=== PATIENT | male | born 1990 | race Caucasian/White ===

== ENCOUNTER 2017-04-15 12:57 | Inpatient (IN) | payer OTHER ==
[2017-04-15] MEDS ORDERED: ONDANSETRON 4 MG/2 ML VIAL ONE (13:34)
[2017-04-15] MEDS ORDERED: NS 1,000 ML IV ONE ×3 (13:37→14:53)
[2017-04-15] MEDS ORDERED: ONDANSETRON 4 MG/2 ML VIAL IVP ONE (13:37)
--- NOTE | 2017-04-15 13:50 | EDPHY ---
H & P Smoking Status: Never smoked Time Seen by Provider: 04/15/17 13:39 HPI/ROS: CHIEF COMPLAINT: Nausea and vomiting HISTORY OF PRESENT ILLNESS: Per the the patient has a history of alcohol use, symptoms started about 3 weeks ago with a headache. Since then he has had difficulty keeping food water down, he says he has nausea all the time, associated with a little bit of epigastric discomfort. No vomiting or diarrhea, symptoms are worse with oral intake. His headache finally went away after about a week. Comes in with severe symptoms which prevent him from keeping food water down. He feels like his mouth is dry. REVIEW OF SYSTEMS: Eye: no change in vision ENT: no sore throat Cardiac: no chest pain or syncope Pulmonary: no cough or SOB Abdomen: HPI Musculoskeletal: no back pain Skin: no rash Neuro: HPI, no weakness or numbness in extremities and no vertigo or trouble with balance or walking. Constitutional: no fever : no urinary symptoms A comprehensive 10 point review of systems is otherwise negative aside from elements mentioned in the history of present illness. PAST MEDICAL HISTORY: Cholecystectomy in 2016 Social history: Alcohol, General Appearance: Alert and conversant, cooperative. Eyes: No scleral icterus. ENT, Mouth: Dry mucous membranes. Respiratory: Normal respiratory effort, breath sounds equal, lungs are clear to auscultation. Cardiovascular: Regular rate and rhythm. Gastrointestinal: Epigastric tenderness without rebound or guarding and negative Mcnair sign. Neurological: Alert, face symmetric, normal motor and sensory in extremities. Not tremulous. Skin: Warm and dry, no rashes. Musculoskeletal: No peripheral edema. Psychiatric: Not agitated. Emergency Department course/MDM: Head CT with headache and nausea. Zofran 4 mg IV and normal saline 1 L IV for clinical diagnosis of dehydration. Electrolytes and LFTs and lipase, ethanol level. 1429: 1mg IV dilaudid for abdominal pain. 1452: Results discussed with the patient, glucose of 480 and CO2 of 9. Possible DKA versus severe dehydration. DKA protocol initiated, venous pH ordered, admission to hospitalist service. Patient's pH is 7.31 but he is severely dehydrated and hyperglycemic and I think is reasonable to start the protocol in the ER. IV and oral potassium supplementation, 2nd and 3rd L IV normal saline, insulin bolus of 10 U and drip at the 0.1 units/kilos per hour. Hyperglycemia and pancreatitis with severe dehydration. (Clovis Church) Constitutional: Initial Vital Signs Temperature (C) 36.4 C 04/15/17 13:00 Heart Rate 129 H 04/15/17 13:00 Respiratory Rate 16 04/15/17 13:00 Blood Pressure 136/99 H 04/15/17 13:00 O2 Sat (%) 97 04/15/17 13:00 O2 Delivery Mode Room Air Allergies/Adverse Reactions: No Known Allergies Allergy (Verified 04/15/17 13:07) Home Medications: Medication Instructions Recorded NK [No Known Home Meds] 04/15/17 Medical Decision Making - Diagnostics Imaging: I viewed and interpreted images myself Consult/Admit Bed Type: [place] [id number] - Diagnostics Imaging Results: Imaging Impressions Head CT 04/15/17 13:49 Impression: 1. Normal CT brain without contrast. 2. No sinusitis. 3. Consider MRI of the brain, if there is continued clinical concern. Findings discussed with Emergency Department physician, Clovis Church at 1412 hour , 04/15/2017. Final report concurs with initial preliminary interpretation. Critical Care Time: Critical care time spent by me, Dr. Church, exclusively with the care of this patient was 30 minutes, exclusive of PA or STITCH RUBBER time and exclusive of separate procedures. The organ system at risk was metabolic and I ordered IV insulin, IV fluids, potassium replacement both IV and oral, multiple diagnostic studies, pain medication and nausea medication, discussion with hospitalist; to stabilize the patient and prevent worsening of the patient's condition. (Clovis Church) Other Provider: 1710: Patient's BGL has decreased to 250. He is still having pain from his alcoholic hepatitis and pancreatitis. 30mg IV Toradol administered. (Tone Walters) - Data Points Laboratory Results: Laboratory Results 04/15/17 13:30 04/15/17 13:30 04/15/17 04/15/17 04/15/17 13:32 13:30 13:30 WBC RBC Hgb Hct MCV MCH MCHC RDW Plt Count MPV Neut % (Auto) Lymph % (Auto) [place] % (Auto) Eos % (Auto) Baso % (Auto) Nucleat RBC Rel Count Absolute Neuts (auto) Absolute Lymphs (auto) Absolute Monos (auto) Absolute Eos (auto) Absolute Basos (auto) Absolute Nucleated RBC Immature Gran % Immature Gran # Sodium 136 mEq/L mEq/L (134-144) Potassium 3.1 mEq/L L mEq/L (3.5-5.2) Chloride 92 mEq/L L mEq/L (97-110) Carbon Dioxide 9 mEq/l L* mEq/l (22-31) Anion Gap 35 mEq/L H mEq/L (8-16) BUN 3 mg/dL L mg/dL (7-23) Creatinine 0.9 mg/dL mg/dL (0.7-1.3) Estimated GFR > 60 Glucose 481 mg/dL H mg/dL (70-100) Hemoglobin A1c Pending Estim Average Glucose Pending Calcium 10.9 mg/dL H mg/dL (8.5-10.4) Phosphorus 3.8 mg/dL mg/dL (2.5-4.5) Magnesium Total Bilirubin 1.3 mg/dL mg/dL (0.1-1.4) Conjugated Bilirubin 1.0 mg/dL H mg/dL (0.0-0.5) Unconjugated Bilirubin 0.3 mg/dL mg/dL (0.0-1.1) AST 177 IU/L H IU/L (17-59) ALT 220 IU/L H IU/L (21-72) Alkaline Phosphatase 195 IU/L H IU/L (38-126) Total Protein 9.0 g/dL H g/dL (6.3-8.2) Albumin 5.4 g/dL H g/dL (3.5-5.0) Lipase 3624 IU/L H IU/L (23-300) Beta-Hydroxybutyrate Ethyl Alcohol < 10 mg/dL mg/dL (0-10) 04/15/17 04/15/17 13:30 13:27 WBC 7.61 10^3/uL 10^3/uL (3.80-9.50) RBC 5.36 10^6/uL 10^6/uL (4.40-6.38) Hgb 16.5 g/dL g/dL (13.7-17.5) Hct 45.1 % % (40.0-51.0) MCV 84.1 fL fL (81.5-99.8) MCH 30.8 pg pg (27.9-34.1) MCHC 36.6 g/dL g/dL (32.4-36.7) RDW 12.3 % % (11.5-15.2) Plt Count 199 10^3/uL 10^3/uL (150-400) MPV 10.4 fL fL (8.7-11.7) Neut % (Auto) 74.8 % H % (39.3-74.2) Lymph % (Auto) 14.6 % L % (15.0-45.0) [place] % (Auto) 8.1 % % (4.5-13.0) Eos % (Auto) 0.3 % L % (0.6-7.6) Baso % (Auto) 1.8 % H % (0.3-1.7) Nucleat RBC Rel Count 0.0 % % (0.0-0.2) Absolute Neuts (auto) 5.69 10^3/uL 10^3/uL (1.70-6.50) Absolute Lymphs (auto) 1.11 10^3/uL 10^3/uL (1.00-3.00) Absolute Monos (auto) 0.62 10^3/uL 10^3/uL (0.30-0.80) Absolute Eos (auto) 0.02 10^3/uL L 10^3/uL (0.03-0.40) Absolute Basos (auto) 0.14 10^3/uL H 10^3/uL (0.02-0.10) Absolute Nucleated RBC 0.00 10^3/uL 10^3/uL (0-0.01) Immature Gran % 0.4 % % (0.0-1.1) Immature Gran # 0.03 10^3/uL 10^3/uL (0.00-0.10) Sodium Potassium Chloride Carbon Dioxide Anion Gap BUN Creatinine Estimated GFR Glucose Hemoglobin A1c Estim Average Glucose Calcium Phosphorus Magnesium 1.9 mg/dL mg/dL (1.6-2.3) Total Bilirubin Conjugated Bilirubin Unconjugated Bilirubin AST ALT Alkaline Phosphatase Total Protein Albumin Lipase Beta-Hydroxybutyrate 7.65 mmol/L H mmol/L (0.02-0.27) Ethyl Alcohol Medications Given: Insulin Human Regular 100 unit / Miscellaneous Medication 1 ea/ Sodium Chloride 101 mls @ 10 mls/hr IV EDNOW ONE PRN Reason: Protocol Stop: 04/16/17 00:58 Last Admin: 04/15/17 15:58 Dose: 101 mls Discontinued Medications Hydromorphone HCl (Dilaudid) 1 mg IVP EDNOW ONE Stop: 04/15/17 14:30 Last Admin: 04/15/17 14:31 Dose: 1 mg Hydromorphone HCl (Dilaudid) 1 mg IVP EDNOW ONE Stop: 04/15/17 15:22 Last Admin: 04/15/17 15:22 Dose: 1 mg Sodium Chloride (Ns) 1,000 mls @ 0 mls/hr IV ONCE ONE PRN Reason: Wide Open Stop: 04/15/17 13:38 Last Admin: 04/15/17 13:38 Dose: 1,000 mls Sodium Chloride (Ns) 1,000 mls @ 0 mls/hr IV ONCE ONE; Wide Open PRN Reason: Protocol Stop: 04/15/17 14:54 Last Admin: 04/15/17 15:15 Dose: 1,000 mls Sodium Chloride (Ns) 1,000 mls @ 0 mls/hr IV ONCE ONE; Wide Open PRN Reason: Protocol Stop: 04/15/17 14:54 Last Admin: 04/15/17 15:55 Dose: 1,000 mls Potassium Chloride 10 meq/ (Sodium Chloride) 100 mls @ 100 mls/hr IV EDNOW ONE Stop: 04/15/17 16:29 Last Admin: 04/15/17 15:55 Dose: 100 mls Insulin Human Regular (Humulin R) 10 unit IVP EDNOW ONE Stop: 04/15/17 14:54 Last Admin: 04/15/17 15:12 Dose: 10 units Ondansetron HCl (Zofran) 4 mg IVP EDNOW ONE Stop: 04/15/17 13:38 Last Admin: 04/15/17 13:38 Dose: 4 mg Potassium Chloride (Klor-Con) 40 meq PO EDNOW ONE Stop: 04/15/17 14:54 Last Admin: 04/15/17 15:12 Dose: 40 meq Departure - Departure Disposition: Home, Routine, Self-Care Clinical Impression: Hyperglycemia, Dehydration Pancreatitis Qualifiers: Chronicity: acute Pancreatitis type: unspecified pancreatitis type Acute pancreatitis complication: unspecified Qualified Code(s): K85.90 - Acute pancreatitis without necrosis or infection, unspecified Condition: Serious
[2017-04-15 13:54] LABS: PLATELET COUNT 199 10^3/uL (150-400)
[2017-04-15] MEDS ORDERED: HYDROmorphONE/DILAUDID 1 MG/ML INJ IVP ONE ×2 (14:29→15:21)
[2017-04-15] MEDS ORDERED: INSULIN REGULAR HUMAN 100 UNIT/ML IVP ONE (14:53)
[2017-04-15] MEDS ORDERED: INSULIN REGULAR HUMAN 100 UNIT, COSIGN. REQUIRED 1 EA in NS 100 ML IV ONE (14:53)
[2017-04-15] MEDS ORDERED: POTASSIUM CL 20 MEQ TAB PO ONE (14:53)
[2017-04-15] MEDS ORDERED: POTASSIUM Cl (KCl) 100 ML IV ONE (14:53)
[2017-04-15] MEDS ORDERED: ACETAMINOPHEN 325 MG TAB PO PRN (14:58)
[2017-04-15] MEDS ORDERED: ONDANSETRON DISINTEGRATING 4 MG TAB PO PRN (14:58)
[2017-04-15] MEDS ORDERED: ONDANSETRON 4 MG/2 ML VIAL IVP PRN (14:58)
[2017-04-15] MEDS ORDERED: HYDROmorphONE/DILAUDID 1 MG/ML INJ ONE (15:21)
[2017-04-15] MEDS ORDERED: POTASSIUM Cl (KCl) 10 MEQ in NS 100 ML IV ONE (15:30)
[2017-04-15] MEDS ORDERED: HYDROmorphONE/DILAUDID 1 MG/ML INJ IVP PRN (15:53)
--- NOTE | 2017-04-15 16:38 | GHP ---
[f rep st] HISTORY AND PHYSICAL DATE OF ADMISSION: 04/15/2017 CHIEF COMPLAINT: 1. DKA. 2. Headache, nausea. HISTORY OF PRESENT ILLNESS: A 26-year-old male with history of alcohol dependence, drinking greater than a pint of whiskey a day, presenting with headache and nausea. Symptoms began 2 to 3 weeks ago and has had difficulty keeping food down since then. He has been dry heaving. Today, he had vomiting with brown emesis. Denies any bright red blood. He developed crampy left- sided abdominal pain that radiated to his back. It is less intense than it has been over the last couple weeks. He denies any fevers, chills, or sweats. No cough or diarrhea. Reports recent polyuria and polydipsia. He states he does awake at night apneic per his 's report. Last drink was last evening. Mother is very concerned that he has been drinking excessively since the of his father a year ago, who also drank heavily. REVIEW OF SYSTEMS: I completed a 10-point review of systems, negative except as noted in HPI. PAST MEDICAL HISTORY: Alcohol dependence. PAST SURGICAL HISTORY: Cholecystectomy 2015. SOCIAL HISTORY: Lives in [place] with his . 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 Smokes marijuana. Drinks a pint or greater of whiskey a day. Has had a history of alcohol withdrawal. Last drink was last night. FAMILY HISTORY: Diabetes father and maternal grandmother. Father with alcoholism. ALLERGIES: No known drug allergies. HOME MEDICATIONS: None. PHYSICAL EXAMINATION: VITAL SIGNS: Temperature 36.4, blood pressure 136/99, heart rate in 120s, respirations 16, 97% on room air. GENERAL: Ill appearing, uncomfortable. HEENT: PERRLA. Very dry mucous membranes. Oropharynx clear. No erythema or exudate. CV: Tachy, regular. No murmurs, gallops, or rubs. LUNGS: Clear anteriorly. ABDOMEN: Obese, but soft. Diffuse tenderness, greater in left upper quadrant epigastric region. No rebound or guarding. Positive bowel sounds. : No suprapubic or CVA tenderness. MUSCULOSKELETAL: 5/5 upper and lower extremity strength. NEURO: 2 through 12 intact. Mild hand tremor. PSYCH: Alert and oriented x3. Flat affect. LABS: WBC 7.6, hemoglobin 16, hematocrit 45, platelets 199. VBG pH 7.3. Sodium 136, potassium 3.1, chloride 92, carbon dioxide 19, anion gap 35, BUN 3, creatinine 0.9, glucose . A1c is pending. Calcium 10.9, mag 1.9, total bilirubin 1.3, unconjugated 0.3, AST 177, ALT 220, alkaline phosphatase 195, total protein 9, albumin 5.4, lipase is 3624. CT head is negative. ASSESSMENT AND PLAN: 1. Diabetic ketoacidosis. This appears to be a new diagnosis with symptoms for last couple weeks including polyuria, polydipsia. Sugars elevated here; aggressive IVFs and insulin drip, transferred to the intensive care unit with serial BMP. 2. Severe anion gap metabolic acidosis secondary to diabetic ketoacidosis and alcohol. Will hydrate aggressively and repeat BMP. 3. Hypokalemia secondary to emesis. Repleting. 4. Transaminitis secondary to alcohol. Will repeat in the morning. 5. Pancreatitis. Pain on exam. Secondary to alcohol. Will check ultrasound. Treat supportively with intravenous fluids and intravenous Dilaudid. 6. Alcohol dependence. Last drink was last night. Will place on Clinical [place] Withdrawal Assessment. 7. Diet: N.p.o., intravenous fluids. Deep venous thrombosis prophylaxis: Sequential compression devices. 8. Nausea and vomiting: He did report dark brown emesis. Unclear if this is blood or not. Will repeat an H and H. 9. Disposition: Patient warrants inpatient admission given acute diabetic ketoacidosis and alcohol withdrawal, warranting intravenous insulin drip and fluids. Critical time spent 45 minutes evaluating patient bedside and reviewing laboratory records and transferring to intensive care unit. /[id number]/MODL MTDD
[2017-04-15] MEDS ORDERED: KETOROLAC 30 MG/1 ML SDV IVP ONE (17:19)
[2017-04-15] MEDS ORDERED: KETOROLAC 30 MG/1 ML SDV ONE (17:20)
[2017-04-15] MEDS: THIAMINE HCL 500 MG in NS 100 ML IV SCH (18:09)
[2017-04-15] MEDS: HYDROmorphONE/DILAUDID 1 MG/ML INJ IVP PRN ×2 (19:34→21:27)
[2017-04-15] MEDS: LORazepam 2 MG/ML INJ IVP PRN ×2 (19:34→23:31)
[2017-04-15 20:56] LABS: PLATELET COUNT 153 10^3/uL (150-400)
[2017-04-15] MEDS: FAMOTIDINE 20 MG/NACL 50 ML IV SCH (21:27)
[2017-04-15] MEDS: INSULIN REGULAR HUMAN 100 UNIT in NS 100 ML IV SCH (22:15)
[2017-04-15] MEDS ORDERED: PROTOCOL POTASSIUM 1 DOSE MISC PRN (22:47)
[2017-04-15] MEDS ORDERED: PROTOCOL MAGNESIUM 1 DOSE IV PRN (22:47)
[2017-04-15] MEDS ORDERED: POTASSIUM Cl (KCl) 100 ML IV SCH (23:00)
[2017-04-15] MEDS: POTASSIUM Cl (KCl) 10 MEQ in NS 100 ML IV SCH (23:24)
[2017-04-16] MEDS: POTASSIUM Cl (KCl) 10 MEQ in NS 100 ML IV SCH ×11 (00:28→22:05)
[2017-04-16] MEDS: HYDROmorphONE/DILAUDID 1 MG/ML INJ IVP PRN ×4 (01:34→21:08)
[2017-04-16] MEDS ORDERED: NS 1,000 ML IV ONE ×2 (04:00)
[2017-04-16] MEDS: INSULIN REGULAR HUMAN 100 UNIT in NS 100 ML IV SCH ×2 (04:30→19:53)
[2017-04-16] MEDS ORDERED: POTASSIUM Cl (KCl) 100 ML IV SCH (04:45)
[2017-04-16] MEDS: LORazepam 2 MG/ML INJ IVP PRN ×3 (05:00→21:07)
[2017-04-16 06:23] LABS: PLATELET COUNT 133 10^3/uL (150-400)
[2017-04-16] MEDS ORDERED: POTASSIUM CL IV ONE (06:45)
[2017-04-16] MEDS ORDERED: NS IV ONE (06:45)
[2017-04-16] MEDS ORDERED: NS W/ 20 KCl/L 1,000 ML IV ONE (07:30)
[2017-04-16] MEDS: THIAMINE HCL 500 MG in NS 100 ML IV SCH (08:21)
[2017-04-16] MEDS: LORazepam 1 MG TAB PO PRN (08:27)
[2017-04-16] MEDS ORDERED: MAGNESIUM SULF 1 GM/DEXTROSE 100 ML IV ONE (09:24)
[2017-04-16] MEDS: FAMOTIDINE 20 MG/NACL 50 ML IV SCH (09:26)
[2017-04-16] MEDS: POTASSIUM Cl (KCl) 100 ML IV SCH ×4 (10:33→13:32)
[2017-04-16] MEDS ORDERED: PROTOCOL K PHOSPHATE 1 DOSE IV PRN (10:40)
--- NOTE | 2017-04-16 11:25 | ASMTCASEMG ---
Living Arrangements What is your living Answers: With Partner arrangement? Who do you live with? Type Of Residence What kind of residence do Answers: House you live in? Discharge Plan Comments Coordination Status Comments Notes: Patient is a 26yo male with a hx of alcohol dependence drinking greater than 1 pint of whiskey per day. Patient was admitted for diabetic ketoacidosis ( new diagnosis), severe anion gap metabolic acidosis, hypokalemia, and pancreatitis. Patient lives in [place] with his life partner. No therapies have been ordered. Patient will likely d/c independent. CM available for d/c needs. Date Signed: 04/16/2017 11:24 AM Electronically Signed By:Una Hector LCSW
[2017-04-16] MEDS ORDERED: D50W 25 GM/50 ML SYR IVP PRN (11:38)
[2017-04-16] MEDS ORDERED: INSULIN LISPRO 100 UNIT/ML SC SCH (11:45)
[2017-04-16] MEDS ORDERED: INSULIN GLARGINE 100 UNITS/ML SYRINGE SC SCH ×2 (11:45→11:46)
--- NOTE | 2017-04-16 12:01 | HOSPPROG ---
Hospitalist Progress Note Assessment/Plan: DKA - new onset. a1c 12. suspect KENDALL. Gap now closed, bicarb nearly normalized transition to lantus with q6h lispro while npo send TIBURCIO Ab needs education Pancreatitis secondary to etoh - dilaudid for pain, NPO for bowel rest, aggressive IVF's Alcohol w/d - CIWA 2-3, monitor Tachycardia - suspect secondary to pancreatitis cont aggressive IVFs Full code Dispo - cont ICU Subjective: Pt complains of abdominal pain, epigastric. No CP or SOB. No fevers overnight. No N/V. Remains NPO. Objective: Vital Signs Temp Pulse Resp BP Pulse Ox 37.2 C 131 H 21 H 135/85 H 98 04/16/17 04:00 04/16/17 10:00 04/16/17 10:00 04/16/17 10:00 04/16/17 10:00 Laboratory Results 04/16/17 06:10 04/16/17 10:00 04/15/17 04/16/17 04/17/17 05:59 05:59 05:59 Intake Total 6016 Output Total 750 Balance 5266 - Physical Exam Constitutional: no apparent distress Eyes: PERRL Ears, Nose, Mouth, Throat: moist mucous membranes Cardiovascular: tachycardia Respiratory: no respiratory distress, clear to auscultation Gastrointestinal: other (soft, nd, +epigastric TTP, no r/r/g) Skin: warm Musculoskeletal: full muscle strength Neurologic: AAOx3 Psychiatric: interacting appropriately ICD10 Worksheet Patient Problems: Problems Problem Status Onset Dehydration Acute Hyperglycemia Acute Pancreatitis Acute
--- NOTE | 2017-04-16 12:28 | CPEKG ---
Heart Rate: 128 RR Interval: 469 P-R Interval: 164 QRSD Interval: 100 QT Interval: 304 QTC Interval: 444 P [place]: 43 QRS [place]: 76 T Wave [place]: -26 EKG Severity - ABNORMAL ECG - EKG Impression: SINUS TACHYCARDIA EKG Impression: BORDERLINE Q WAVES IN INFERIOR LEADS EKG Impression: INFERIOR Q WAVES, PROBABLY NORMAL VARIATION EKG Impression: BORDERLINE T ABNORMALITIES, DIFFUSE LEADS Electronically Signed By: Kei Ramírez 16-Apr-2017 14:51:09
[2017-04-16] MEDS ORDERED: INSULIN GLARGINE 100 UNITS/ML SYRINGE SC ONE (13:00)
[2017-04-16] MEDS: PANTOPRAZOLE SODIUM 40 MG VIAL IVP SCH (13:37)
[2017-04-16] MEDS: K PHOS 15 MMOL in D5W 250 ML IV ONE ×2 (15:18→18:20)
[2017-04-16] MEDS ORDERED: INSULIN LISPRO 100 UNIT/ML SC ONE (15:57)
--- NOTE | 2017-04-16 16:00 | ASMTCMCOM ---
CM Note CM Note Notes: Spoke with patient's life partner, Norberto who had completed paperwork for financial services. Tubed her paperwork to rito Soliz. CM will follow. Date Signed: 04/16/2017 03:59 PM Electronically Signed By:Una Hector LCSW
--- NOTE | 2017-04-16 17:14 | PDMN ---
Medical Necessity Medical necessity: Patient meets INPT criteria per physician note and MCG M-250 Pancreatitis - 2 days - (abd pain, serum lipase 3624 on admission, initial lactic acidosis/anion gap of 35 resolved; ongoing tachycardia in the 120's w/ fever to 102.7 and tachypnea; acute DKA; anticipated LOS > 2 midnights for ongoing IV hydration, IV insulin, IV Dilaudid for pain control, NPO for bowel rest, likely alcohol withdrawal.)
[2017-04-16] MEDS ORDERED: ACETAMINOPHEN 650 MG SUPP PR PRN (17:16)
[2017-04-16] MEDS ORDERED: INSULIN REGULAR HUMAN 100 UNIT in NS 100 ML IV SCH (18:00)
[2017-04-16] MEDS: NS W/ 20 KCl/L 1,000 ML IV SCH (19:49)
[2017-04-16] MEDS ORDERED: D5W 1,000 ML IV SCH (21:34)
[2017-04-17] MEDS: POTASSIUM Cl (KCl) 10 MEQ in NS 100 ML IV SCH ×12 (01:27→22:04)
[2017-04-17] MEDS: NS W/ 20 KCl/L 1,000 ML IV SCH ×2 (02:07→05:32)
[2017-04-17] MEDS: INSULIN REGULAR HUMAN 100 UNIT in NS 100 ML IV SCH (05:27)
[2017-04-17] MEDS: CHLORHEXIDINE GLUCONATE 15 ML UDL PO SCH ×2 (05:32→20:09)
[2017-04-17 06:10] LABS: PLATELET COUNT 116 10^3/uL (150-400)
[2017-04-17] MEDS ORDERED: POTASSIUM Cl (KCl) 100 ML IV SCH ×2 (08:00→14:21)
[2017-04-17] MEDS: THIAMINE HCL 500 MG in NS 100 ML IV SCH (08:23)
[2017-04-17] MEDS: PANTOPRAZOLE SODIUM 40 MG VIAL IVP SCH (08:27)
[2017-04-17] MEDS ORDERED: MAGNESIUM SULF 1 GM/DEXTROSE 100 ML IV ONE (09:17)
[2017-04-17] MEDS: LORazepam 2 MG/ML INJ IVP PRN (10:56)
[2017-04-17] MEDS ORDERED: D50W 25 GM/50 ML SYR IVP PRN (11:22)
--- NOTE | 2017-04-17 11:29 | HOSPPROG ---
Hospitalist Progress Note Assessment/Plan: DKA - new onset. a1c 12. suspect KENDALL. Gap now closed transition to lantus with q6h lispro SSI until taking po TIBURCIO Ab pending needs ongoing education Pancreatitis secondary to etoh - lipase trending down, still some pain dilaudid for pain trial clears Alcohol w/d - cont CIWA Tachycardia - suspect secondary to pancreatitis, improving cont IVF's Full code Dispo - cont ICU, transfer to floor later today or tomorrow if BG's remains stable and gap stays closed with transition to SC insulin Subjective: Pt feeling a little better. Still c/o abdominal pain. No N/V. No BM's. No more fevers. Objective: Vital Signs Temp Pulse Resp BP Pulse Ox 37.4 C 112 H 18 122/67 H 99 04/17/17 10:00 04/17/17 10:00 04/17/17 10:00 04/17/17 10:00 04/17/17 10:00 Laboratory Results 04/17/17 06:06 04/17/17 06:06 04/16/17 04/17/17 04/18/17 05:59 05:59 05:59 Intake Total 9063 Output Total 3025 Balance 6038 - Physical Exam Constitutional: no apparent distress Eyes: PERRL Ears, Nose, Mouth, Throat: moist mucous membranes Cardiovascular: regular rate and rhythym Respiratory: no respiratory distress, clear to auscultation Gastrointestinal: normoactive bowel sounds, other (soft, nd, +epigastric TTP, no r/r/g) Skin: warm Musculoskeletal: full muscle strength Neurologic: AAOx3 Psychiatric: interacting appropriately ICD10 Worksheet Patient Problems: Problems Problem Status Onset Dehydration Acute Hyperglycemia Acute Pancreatitis Acute
[2017-04-17] MEDS ORDERED: D5W LR 1,000 ML IV SCH ×2 (11:30→17:30)
[2017-04-17] MEDS: INSULIN GLARGINE 100 UNITS/ML SYRINGE SC SCH (11:41)
[2017-04-17] MEDS: ENOXAPARIN 40 MG/0.4 ML SYR SC SCH (11:53)
[2017-04-17] MEDS: INSULIN LISPRO 100 UNIT/ML SC SCH ×3 (13:13→20:54)
[2017-04-17] MEDS: HYDROmorphONE/DILAUDID 1 MG/ML INJ IVP PRN ×2 (13:40→20:39)
--- NOTE | 2017-04-17 16:08 | GCON ---
[f rep st] CONSULTATION PULMONARY/CRITICAL CARE CONSULTATION. DATE OF CONSULTATION: 04/17/2017 REFERRING PHYSICIAN: Swathi Ocasio MD REASON FOR REFERRAL: Evaluation and management of anemia, hypokalemia, and alcohol withdrawal. HISTORY: The patient is a 27-year-old male with a history of alcoholism, which has increased recently to a pint of whiskey a day. He was admitted 2 days ago with headache and nausea as well as abdominal pain. He also had some vomiting. He was found to have diabetic ketoacidosis as well as pancreatitis. This is a new diagnosis of diabetes. He had severe metabolic acidosis with a blood glucose of 9 and a pH of 7.31 at the time of admission. His glucose was 481. Thus, he was started on insulin drip and his anion gap closed from 35 down to normal within 10 hours, and has remained closed since then. He also had significant hypokalemia, with a potassium of 3.1 and it has remained low since admission. He reports that his abdominal pain is improving, although he still is quite uncomfortable. He is not having vomiting, but does feel a little bit of nausea. He still feels fairly weak, but this is improving. He is having some mild tremors that he attributes to alcohol withdrawal. He reports that these get worse at night, but have been improved with treatment with Ativan. PAST MEDICAL HISTORY: Alcohol use. MEDICATIONS: At time of admission, none. ALLERGIES: None. SOCIAL HISTORY: The patient lives with his . He works installing foam insulation. He drinks a pint or greater of whiskey daily and has a history of alcohol withdrawal. He smokes marijuana. FAMILY HISTORY: Unremarkable. REVIEW OF SYSTEMS: A 10-point review of systems adds nothing to the history of present illness.. PHYSICAL EXAMINATION: GENERAL: The patient is awake, alert, and in no acute distress. VITAL SIGNS: Blood pressure is 127/76 with a heart rate of 102. Oxygen saturations are 98% on 2 L. The patient is currently afebrile, but had a temperature of 38.2 earlier today. HEENT: Normocephalic and atraumatic. No icterus. NECK: No adenopathy. Trachea is midline. CHEST: He has some rales in the bases. CARDIAC: Regular tachycardia without murmur. ABDOMEN: Soft. He is diffusely tender in the epigastric area without rebound. Bowel sounds are present. EXTREMITIES: No clubbing, cyanosis, or edema. NEURO: The patient is awake and alert. He has a mild tremor. There is no focal motor or sensory deficits. Please go back as thick as title vital signs is the patient is afebrile acute please change that to the patient is currently afebrile, but had a temperature 38.2 earlier today. Now on 2. LABORATORY: A potassium was 3.0 this morning, but up to 3.7 on recheck. Phosphorus is 1.0. Lipase is 1195, down from 3624 at admission. Blood glucoses are in the low 200s. Anion gap was 12 early this morning and carbon dioxide level is 18. Hemoglobin of this level was 12.5. ASSESSMENT: 1. Diabetic ketoacidosis. The patient had marked hyperglycemia as well as symptoms of nausea and weakness, although this could also have been from alcohol withdrawal. His hemoglobin A1c is 12, suggesting longstanding severe hyperglycemia. His gap has closed quickly with IV insulin drip. He is also on D5 because he has been n.p.o. 2. Alcohol withdrawal. The patient's CIWA score has been in a reasonable range of less than 10 with the use of benzodiazepines on a as needed basis. He still has some mild tremor. 3. Anemia. The patient has mild anemia, likely related to hydration. 4. Pancreatitis. The patient's abdominal pain persists but is improved, and his lipase is falling. RECOMMENDATIONS: 1. Continue insulin, change to long-acting and sliding scale. Continue D5 until he is able to start taking p.o. We will start offer clear liquids today and see how he tolerates this. If he has increased abdominal pain, these will need to be stopped. 2. Follow hemoglobin level. /[id number]/MODL MTDD
[2017-04-17] MEDS: D5W 1/2 NS 1,000 ML IV SCH (17:37)
[2017-04-17] MEDS ORDERED: D5W 1,000 ML IV SCH (17:45)
[2017-04-18] MEDS: POTASSIUM Cl (KCl) 10 MEQ in NS 100 ML IV SCH ×6 (02:33→20:52)
[2017-04-18] MEDS: D5W 1/2 NS 1,000 ML IV SCH (03:30)
[2017-04-18] MEDS: HYDROmorphONE/DILAUDID 1 MG/ML INJ IVP PRN ×4 (06:16→23:59)
[2017-04-18] MEDS: PANTOPRAZOLE SODIUM 40 MG VIAL IVP SCH (08:26)
[2017-04-18] MEDS: ENOXAPARIN 40 MG/0.4 ML SYR SC SCH (08:26)
[2017-04-18] MEDS: INSULIN LISPRO 100 UNIT/ML SC SCH ×4 (08:29→23:27)
[2017-04-18] MEDS: CHLORHEXIDINE GLUCONATE 15 ML UDL PO SCH ×2 (08:38→23:27)
[2017-04-18] MEDS: INSULIN GLARGINE 100 UNITS/ML SYRINGE SC SCH (08:44)
[2017-04-18] MEDS: THIAMINE HCL 500 MG in NS 100 ML IV SCH (08:46)
--- NOTE | 2017-04-18 09:50 | HOSPPROG ---
Hospitalist Progress Note Assessment/Plan: DKA - new onset. a1c 12. suspect KENDALL. Gap now closed, off insulin drip cont lantus, q6h lispro until taking better po TIBURCIO Ab pending needs ongoing education Pancreatitis secondary to etoh - lipase trending down, still some pain dilaudid for pain cont sips of clears, advance diet when pain free Alcohol w/d - cont CIWA Tachycardia - suspect secondary to pancreatitis, improving cont IVF's Full code Dispo - cont inpt, transfer to med/surg Subjective: Pt feels better. Still a little abdominal / back pain, but improved. No fevers. No CP or SOB. No N/V. Tolerating clears. Objective: Vital Signs Temp Pulse Resp BP Pulse Ox 37.6 C 109 H 12 118/73 92 04/18/17 04:00 04/18/17 06:00 04/18/17 06:00 04/18/17 06:00 04/18/17 06:00 Microbiology 04/17/17 08:30 - Final Sputum, Expectorated Laboratory Results 04/17/17 06:06 04/18/17 06:05 04/17/17 04/18/17 04/19/17 05:59 05:59 05:59 Intake Total 9063 6000 Output Total 3025 3775 Balance 6038 2225 - Physical Exam Constitutional: no apparent distress Eyes: PERRL Ears, Nose, Mouth, Throat: moist mucous membranes Cardiovascular: regular rate and rhythym Respiratory: no respiratory distress Gastrointestinal: normoactive bowel sounds, other (soft, mild TTP, no r/r/g) Skin: warm Musculoskeletal: full muscle strength Neurologic: AAOx3 Psychiatric: interacting appropriately ICD10 Worksheet Patient Problems: Problems Problem Status Onset Dehydration Acute Hyperglycemia Acute Pancreatitis Acute
[2017-04-18] MEDS: HYDROmorphone HCL/NS/PF 0.4 MG/2 ML SYR IVP PRN ×2 (11:52→14:41)
[2017-04-18] MEDS: POTASSIUM Cl (KCl) 100 ML IV SCH ×4 (13:12→15:57)
[2017-04-18] MEDS ORDERED: PROTOCOL POTASSIUM 1 DOSE MISC PRN (15:23)
[2017-04-18] MEDS: LORazepam 1 MG TAB PO PRN (23:27)
[2017-04-18] MEDS ORDERED: POTASSIUM CL 20 MEQ TAB PO ONE (23:38)
[2017-04-19] MEDS: POTASSIUM Cl (KCl) 10 MEQ in NS 100 ML IV SCH ×2 (00:07→00:08)
[2017-04-19] MEDS ORDERED: HYDROmorphone HCL/NS/PF 0.4 MG/2 ML SYR IVP PRN (07:30)
[2017-04-19] MEDS ORDERED: POTASSIUM CL 10 MEQ TAB PO ONE ×2 (07:48→21:42)
[2017-04-19] MEDS: INSULIN GLARGINE 100 UNITS/ML SYRINGE SC SCH (08:51)
[2017-04-19] MEDS: INSULIN LISPRO 100 UNIT/ML SC SCH ×7 (08:53→21:32)
[2017-04-19] MEDS: PANTOPRAZOLE SODIUM 40 MG TAB PO SCH (08:59)
[2017-04-19] MEDS: ENOXAPARIN 40 MG/0.4 ML SYR SC SCH (09:01)
[2017-04-19] MEDS: CHLORHEXIDINE GLUCONATE 15 ML UDL PO SCH ×2 (09:01→21:31)
[2017-04-19] MEDS: oxyCODONE IR 5 MG TAB PO PRN ×2 (12:29→19:16)
--- NOTE | 2017-04-19 13:56 | ASMTCMCOM ---
CM Note CM Note Notes: Pt has new dx of diabetes. recommmending ongoing education. Pt would benefit from HC RN but is currentrly self-pay. If pt qualifies for Medicaid, CM will set up HC. Otherwise, pt shouls be set up with a PCP prirot to DC for f/u. Date Signed: 04/19/2017 01:56 PM Electronically Signed By:Angelica Vazquez LCSW
[2017-04-19] MEDS ORDERED: POTASSIUM CL 20 MEQ TAB PO ONE (14:38)
--- NOTE | 2017-04-19 15:32 | HOSPPROG ---
Hospitalist Progress Note Assessment/Plan: DKA - new onset. a1c 12. suspect KENDALL. Gap closed, off insulin drip cont lantus, q6h lispro until taking better po TIBURCIO Ab pending needs ongoing education Pancreatitis secondary to etoh - pain free today dc dilaudid adat Alcohol w/d - cont CIWA Tachycardia - resolved Full code Dispo - cont inpt, likely home in am if tolerating diet Subjective: Pt feels better. He is tearful, emotional about new diagnoses. Denies pain. No N/V. No fevers. Objective: Vital Signs Temp Pulse Resp BP Pulse Ox 36.9 C 99 15 114/76 94 04/19/17 08:00 04/19/17 11:56 04/19/17 11:56 04/19/17 11:56 04/19/17 11:56 Microbiology 04/17/17 08:30 - Final Sputum, Expectorated Sputum Culture - Final Laboratory Results 04/17/17 06:06 04/19/17 04:34 04/18/17 04/19/17 04/20/17 05:59 05:59 05:59 Intake Total 6000 1500 Output Total 3775 Balance 2225 1500 - Physical Exam Constitutional: no apparent distress Eyes: PERRL Ears, Nose, Mouth, Throat: moist mucous membranes Cardiovascular: regular rate and rhythym Respiratory: no respiratory distress, clear to auscultation Gastrointestinal: normoactive bowel sounds, soft, non-tender abdomen Skin: warm Musculoskeletal: full muscle strength Neurologic: AAOx3 Psychiatric: interacting appropriately ICD10 Worksheet Patient Problems: Problems Problem Status Onset Dehydration Acute Hyperglycemia Acute Pancreatitis Acute
[2017-04-19 17:20] VITALS: RESP 16
[2017-04-20] MEDS ORDERED: PANTOPRAZOLE SODIUM 40 MG TAB PO SCH
[2017-04-20] MEDS ORDERED: oxyCODONE IR 5 MG TAB PO SCH
[2017-04-20] MEDS ORDERED: INSULIN GLARGINE 100 UNIT/ML VIAL SC SCH
[2017-04-20] MEDS: oxyCODONE IR 5 MG TAB PO PRN (04:17)
[2017-04-20] MEDS ORDERED: POTASSIUM CL 20 MEQ TAB PO ONE (06:32)
[2017-04-20 07:41] VITALS: BP 117/81; PULSE 95; TEMP 98.4; O2SAT 90
[2017-04-20] MEDS: INSULIN LISPRO 100 UNIT/ML SC SCH ×4 (08:19→11:43)
[2017-04-20] MEDS: PANTOPRAZOLE SODIUM 40 MG TAB PO SCH (08:25)
[2017-04-20] MEDS: ENOXAPARIN 40 MG/0.4 ML SYR SC SCH (08:27)
[2017-04-20] MEDS: INSULIN GLARGINE 100 UNITS/ML SYRINGE SC SCH (08:28)
[2017-04-20] MEDS: CHLORHEXIDINE GLUCONATE 15 ML UDL PO SCH (08:29)
[2017-04-20] MEDS: LORazepam 1 MG TAB PO PRN (10:11)
[2017-04-20] MEDS ORDERED: POTASSIUM CL 20 MEQ TAB PO SCH ×2 (13:03)
--- NOTE | 2017-04-20 13:17 | ASMTCMCOM ---
CM Note CM Note Notes: Chart reviewed. Patient is medically cleared for discharge. New diagnosis of DM. He is also self pay without resources to acquire medications. Spoke to pharmacy about mapping medications. He will pay out of pocket for pain medications. I emphasized the importance of follow up with [facility] tomorrow to get appointment. He and his state understanding. Plan home independent with and plan for follow up. Date Signed: 04/20/2017 01:17 PM Electronically Signed By:Myra Sanchez RN
[2017-04-20] MEDS ORDERED: [UNRECOGNIZED DRUG - OTHER] SC SCH ×2 (16:00)
[2017-04-20] MEDS ORDERED: INSULIN LISPRO 100 UNIT/ML SC SCH ×2 (16:00)
--- NOTE | 2017-04-20 20:44 | GDS ---
[f rep st] DISCHARGE SUMMARY DISCHARGE DIAGNOSES: 1. Diabetic ketoacidosis, resolved. 2. 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 3. Pancreatitis, likely secondary to alcohol. 4. Alcohol dependence, status post withdrawal. HISTORY OF DETAILS: Please see the history and physical dated 04/15/2017. In brief, the patient is a 27-year-old male with a history of alcohol dependence who presented to the emergency department wit h headache and nausea and was found to be in diabetic ketoacidosis. Was admitted to the intensive ca re unit for further management. HOSPITAL COURSE: The patient was admitted to the ICU. He received aggressive IV fluid resuscitation per DKA protocol along with an insulin drip. His anion gap closed and he was transitioned to subcut aneous insulin. He has had fairly high insulin requirements, given his new diagnosis of diabetes. A TIBURCIO antibody is sent, is currently pending, to assess for autoimmune etiology. As it is uncommon fo r a type 2 diabetic to present in DKA, I am suspicious for latent autoimmune diabetes of adulthood, a nd I anticipate he will have ongoing insulin needs. With respect to his pancreatitis, he was kept n. p.o., on bowel rest. Once he was pain-free, he was able to advance his diet and is tolerating a full diet at the time of discharge. He did have some alcohol withdrawal, which has resolved at the time of discharge. Diabetes education was provided by nursing staff, dietary staff, and myself, though he will need ongoing diabetes education and close primary care followup. DISPOSITION: Patient is discharged home in stable condition. FOLLOWUP: The patient will have followup with primary care at the [facility] within 1-2 days. He should have a repeat basic metabolic panel to recheck his potassium level, which was still a bit low at 3.2. DISCHARGE MEDICATIONS: Please see [facility] for complete updated outpatient medication list. New med ications on discharge include: 1. Insulin glargine 60 units subcutaneous daily. 2. Insulin lispro 15 units subcutaneous q.a.c. 3. Potassium 20 mEq p.o. twice daily. 4. Protonix 40 mg p.o. daily. 5. Oxycodone 5 mg p.o. q.6 hours p.r.n., #10, no refills. Patient was advised this is for short-ter m use only. /[id number]/MODL
[2017-04-21] MEDS ORDERED: INSULIN GLARGINE 100 UNIT/ML VIAL SC SCH (09:00)
== END 2017-04-20 13:49 | disposition home or self-care (01) | DRG 638 ==
LOC: INTOOBSV 14:56 → F2N 17:44 → OBSVTOIN 04-16 15:17 → F3N 04-18 12:19
PROVIDERS: ADMIT Internal Medicine; ATTEND Hospitalist
DX: E10.10 Type 1 diabetes mellitus with ketoacidosis without coma (principal); K86.0 Alcohol-induced chronic pancreatitis; F10.239 Alcohol dependence with withdrawal, unspecified; E86.0 Dehydration; E87.6 Hypokalemia
CPT/HCPCS: 82947-QW; 86341-90; 96374; G0378; G0480; J1170; J1650; J1815; J1885; J2060; J2405; J3411; J3475